=== PATIENT | male | born 1955 | race Caucasian/White ===

== ENCOUNTER 2016-10-17 18:36 | Emergency (ER) | payer BC ==
--- NOTE | 2016-11-14 21:25 | ER ---
ADMIT: 10/17/2016 RM/LOC: ER [facility] MR#: [id number] [id number] BILLY IZQUIERDO [address] [place] [address] Emergency Room Report SEX: M AGE: 61 : 1955 DATE: 10/17/2016 HISTORY OF PRESENT ILLNESS: A 61-year-old with body aches, fevers, chills, and cough. See T-sheet for history and physical. Influenza B is positive. DIAGNOSIS: Influenza B is positive. Given Tamiflu in the Emergency Department, prescription for same. Encouraged to follow up with his primary doctor if not better in 3 or 4 days. Jack Norton MD/ belinda JOB #: [id number] CC: Allen Gordillo MD, Attending Physician Romain Alfredo, Family Physician
== END 2016-10-17 21:00 | disposition home or self-care (01) ==
LOC: ER 18:36
DX: J10.1 Influenza due to other identified influenza virus with other respiratory manifestations (principal); I10 Essential (primary) hypertension; Z88.5 Allergy status to narcotic agent; Z79.899 Other long term (current) drug therapy